=== PATIENT | male | born 1975 | race Caucasian/White ===

== ENCOUNTER 2024-05-25 18:46 | Emergency (ER) | payer OTHER, SELFPAY ==
[2024-05-25 18:56] VITALS: BP 133/80; PULSE 91; RESP 16; TEMP 36.9; O2SAT 98
--- NOTE | 2024-05-25 19:20 | ED.GENADULT ---
HPI - General Adult General Chief complaint: Dental/Oral Stated complaint: DENTAL History of Present Illness HPI narrative: Jorge Wong Is a 48-year-old male who presents today with complaints of having a dental infection to the left upper gums. He states that he is having hard time getting into the dentist and states he was on Augmentin before but it did not really help he wants to try something different. Related Data Home Medications ?Medication ?Instructions ?Recorded ?Confirmed ?Last Taken ?Type gabapentin 300 mg capsule mg 05/25/24 Unknown History Allergies Allergy/AdvReac Type Severity Reaction Status Date / Time Sulfa (Sulfonamide Allergy Mild Hives Verified 05/25/24 19:13 Antibiotics) Review of Systems Review of Systems: All systems reviewed & are unremarkable except as noted in HPI and below Exam Narrative: GENERAL: Well-appearing, well-nourished, and in no acute distress. HEAD: Normocephalic, atraumatic. EYES: PERRLA and EOMI. ENT: Nares clear, no rhinorrhea or epistaxis. Significant dental decay noted throughout difficult to tell which to the infection is coming from. Mucous membranes moist. Oropharynx without tonsillar hypertrophy exudate or other lesions. Bilateral TMs pearly dodson non bulging NECK: Supple. No adenopathy or masses. No carotid bruits or JVD CHEST: Clear to auscultation. No respiratory distress. No wheezes rales or rhonchi HEART: Regular rate and rhythm. No murmur heard. Normal peripheral pulses. ABDOMEN: Soft, nontender, nondistended, normal active bowel sounds. EXTREMITIES: Normal range of motion. No edema. SKIN: Warm, dry, no rash. NEURO: No focal deficits. Alert and oriented x3. PSYCH: Normal mood and affect. Course Course Level of Care: Express Care Visit Vital Signs Vital signs: Vital Signs Temperature 36.9 C 05/25/24 18:56 Pulse Rate 91 05/25/24 18:56 Respiratory Rate 16 05/25/24 18:56 Blood Pressure 133/80 05/25/24 18:56 Pulse Oximetry 98 05/25/24 18:56 Oxygen Delivery Room Air 05/25/24 18:56 Temperature 36.9 C 05/25/24 18:56 Pulse Rate 91 05/25/24 18:56 Respiratory Rate 16 05/25/24 18:56 Blood Pressure 133/80 05/25/24 18:56 Pulse Oximetry 98 05/25/24 18:56 Oxygen Delivery Room Air 05/25/24 18:56 Medical Decision Making MDM Narrative Medical decision making narrative: ED COURSE AND MEDICAL DECISION MAKING: Patient with worsening dental pain and dental decay. No systemic signs or symptoms. Antibiotics course provided Follow-up instructions given for dental/oral surgery clinics. Patient was given return precautions and discharged home in stable condition. Pulse oximetry interpretation: not hypoxic. Disposition: Discharge to home in stable condition. Impression: Acute dental pain, likely due to dental caries. Vital Signs Vital Signs: Vital Signs Temperature 36.9 C 05/25/24 18:56 Pulse Rate 91 05/25/24 18:56 Respiratory Rate 16 05/25/24 18:56 Blood Pressure 133/80 05/25/24 18:56 Pulse Oximetry 98 05/25/24 18:56 Oxygen Delivery Room Air 05/25/24 18:56 Temperature 36.9 C 05/25/24 18:56 Pulse Rate 91 05/25/24 18:56 Respiratory Rate 16 05/25/24 18:56 Blood Pressure 133/80 05/25/24 18:56 Pulse Oximetry 98 05/25/24 18:56 Oxygen Delivery Room Air 05/25/24 18:56 Vitals reviewed Discharge Plan Discharge Clinical Impression: Toothache, Dental caries, Dental abscess Patient Disposition: Home, Self-Care Condition: Stable Instructions: Antibiotic Form Patient Language: Hungarian Prescriptions: New clindamycin HCl 150 mg capsule 450 mg PO TID Qty: 90 0RF Rx Instructions: take 3 caps three times a day for 10 days naproxen 500 mg tablet 500 mg PO BID PRN (Reason: pain) Qty: 28 0RF No Action gabapentin 300 mg capsule Follow-up/Referrals: PHYSICIAN,INSPECTOR [employer] [Primary Care Provider] - Stand Alone Forms: Work/School Release IP Time of Disposition: 19:25
== END 2024-05-25 19:27 | disposition home or self-care (01) ==
PROVIDERS: Emergency Provider Nurse Practitioner Family
DX: K08.89 Other specified disorders of teeth and supporting structures (principal); K02.9 Dental caries, unspecified; K04.7 Periapical abscess without sinus
CPT/HCPCS: 99203; G0463